=== PATIENT | male | born 1950 | race Caucasian/White ===

== ENCOUNTER 2021-12-16 09:20 | Emergency (ER) | payer OTHER ==
[2021-12-16 09:40] VITALS: BMI 25.8
[2021-12-16] MEDS ORDERED: amLODIPine BESYLATE 5 MG TABLET (FP) PO ONE (10:22)
[2021-12-16 10:24] LABS: INR 1.09 (0.83-1.09); PROTHROMBIN TIME (PATIENT) 12.5 SEC (9.7-13.0)
[2021-12-16] MEDS ORDERED: amLODIPine BESYLATE 5 MG TABLET (FP) ONE (10:24)
[2021-12-16 10:27] LABS: ACTIVATED PTT 29.8 SECONDS (25.2-36.5)
[2021-12-16 10:44] LABS: BASO % 0.2 % (0-2.0); HEMATOCRIT 45.2 % (35.4-49); HEMOGLOBIN 15.1 GM/dL (11.7-16.9); LYMPH % 11.8 % (8-40); MCH 29.1 pg (25.7-33.7); MCHC 33.3 g/dl (32.0-35.9); MEAN CELL VOLUME 87.4 fl (80-96); MEAN PLT VOLUME 11.4 fl (7.5-11.1); MONO % 8.6 % (3.8-10.2); NEUT % 78.4 % (42.8-82.8); PLATELET COUNT 158 10^3/uL (134-434); RBC 5.17 M/mm3 (4.00-5.60); RDW 12.7 % (11.9-15.9); WHITE BLOOD COUNT 8.2 K/mm3 (4.0-10.0)
[2021-12-16 10:46] LABS: ALBUMIN 3.7 g/dl (3.4-5.0); BILIRUBIN,TOTAL 0.8 mg/dl (0.2-1); CALCIUM 9.1 mg/dl (8.5-10); CREATININE 1.3 mg/dl (0.55-1.3); TOT PROT 6.6 g/dl (6.4-8.2)
[2021-12-16 10:47] LABS: CALCIUM OXALATE CRYSTALS FEW /hpf (NONE SEEN); EPITHELIAL CELLS RARE /hpf
[2021-12-16 12:39] VITALS: BP 177/89; PULSE 78; TEMP 97.8
== END 2021-12-16 12:45 | disposition left against medical advice (07) ==
LOC: FER 09:20
DX: K40.30 Unilateral inguinal hernia, with obstruction, without gangrene, not specified as recurrent (principal)
CPT/HCPCS: 36415; 74177-TC; 80053; 81003; 81015; 85025; 85610; 85730; 86850; 86900; 86901; 87086; 99285-25; Q9967